=== PATIENT | male | born 1990 | race African-American/Black ===

== ENCOUNTER 2017-03-30 09:54 | Emergency (ER) | payer OTHER ==
[~2017-03-30] VITALS: Ht 175.3 cm; Wt 95.5 kg
[2017-03-30 09:56] VITALS: BP 139/81
[2017-03-30] MEDS ORDERED: IBUP-1022 PO (10:03)
--- NOTE | 2017-03-30 10:54 | REP ---
Clinical: Pain over the tibial tuberosity. Technique: AP, lateral, bilateral oblique and sunrise views. Findings: The osseous structures and joint spaces are intact and normal. There is no evidence for acute fracture or dislocation. No joint effusion is appreciated. Surrounding soft tissues are unremarkable. No subcutaneous emphysema or radiodense foreign body. Anterior proximal tibia appears normal and without evidence for [place] disease. Impression: Normal examination. No acute fracture or dislocation. Signed by Jevon Newell MD 03/30/2017 10:45 A
[2017-03-30] MEDS ORDERED: ACET30TAB PO (11:11)
[2017-03-30] MEDS ORDERED: NAPR500T PO (11:11)
== END 2017-03-30 11:30 | disposition home or self-care (01) ==
LOC: M ED 09:54
DX: S86.811A Strain of other muscle(s) and tendon(s) at lower leg level, right leg, initial encounter (principal); X50.9XXA Other and unspecified overexertion or strenuous movements or postures, initial encounter; Y92.139 Unspecified place military base as the place of occurrence of the external cause; Y93.02 Activity, running; Y99.1 Military activity; D64.9 Anemia, unspecified

== ENCOUNTER 2018-08-10 06:43 | Emergency (ER) | payer OTHER ==
[~2018-08-10] VITALS: Ht 175.3 cm; Wt 96.2 kg
[~2018-08-10 06:43] MED LIST: ACET-716 PO; IBUP-1022 PO; NAPR-837 PO
[2018-08-10] MEDS ORDERED: NS 1,000 ML IV ONE (07:15)
[2018-08-10 07:38] LABS: BASO % 0.5 % (0.0-1.0); EOS # 0.1 10^3/uL (0.0-0.50); EOS % 1.4 % (0.0-3.0); HEMATOCRIT 41.9 % (42.0-52.0); HEMOGLOBIN 14.2 g/dl (13.5-17.5); LYMPH # 0.8 10^3/uL (1.5-6.5); LYMPH % 18.7 % (24.0-44.0); MEAN CORPUSCULAR HEMOGLOBIN 28.5 pg (27.0-33.0); MEAN CORPUSCULAR HGB CONC 33.9 g/dl (32.0-36.5); MEAN CORPUSCULAR VOLUME 84.1 fl (80.0-96.0); MONO # 0.4 10^3/uL (0.0-0.8); MONO % 10.2 % (0.0-5.0); NEUTROPHILS # 2.9 10^3/uL (1.8-7.7); NEUTROPHILS % 68.7 % (36.0-66.0); PLATELET COUNT, AUTOMATED 180 10^3/uL (150-450); RED BLOOD COUNT 4.98 10^6/uL (4.30-6.10); WHITE BLOOD COUNT 4.2 10^3/uL (4.0-10.0)
[2018-08-10] MEDS ORDERED: ISOVUE-370 76% 125ML VIAL (Q9967 PER ML) As Ordered ONE (08:01)
[2018-08-10 08:36] LABS: ALBUMIN 3.8 GM/DL (3.2-5.2); ALT/SGPT 32 U/L (12-78); BILIRUBIN,DIRECT < 0.1 MG/DL (0.0-0.2); BILIRUBIN,TOTAL 0.5 MG/DL (0.2-1.0); BLOOD UREA NITROGEN 8 MG/DL (7-18); CALCIUM LEVEL 8.7 MG/DL (8.5-10.1); CARBON DIOXIDE LEVEL 28 MEQ/L (21-32); CHLORIDE LEVEL 106 MEQ/L (98-107); CREATININE FOR GFR 1.41 MG/DL (0.70-1.30); GLOMERULAR FILTRATION RATE > 60.0 (>60); GLUCOSE, FASTING 92 MG/DL (70-100); LIPASE 235 U/L (73-393); POTASSIUM SERUM 3.8 MEQ/L (3.5-5.1); SODIUM LEVEL 139 MEQ/L (136-145); TOTAL PROTEIN 7.7 GM/DL (6.4-8.2)
--- NOTE | 2018-08-10 09:24 | REP ---
CT ABDOMEN AND PELVIS WITH IV CONTRAST: TECHNIQUE: Axial contrast enhanced images from the lung bases to the pubic symphysis using 100 mL Isovue 370 intravenous contrast material with multiplanar reformations. The visualized lung bases are clear. Liver, spleen, adrenals, pancreas and kidneys are normal in appearance. There is no hydronephrosis. There is no abdominal aortic aneurysm. There is no adenopathy. There is no free air or free fluid. There is no bowel wall thickening. There is no appendicitis. There is no pelvic mass. The urinary bladder is unremarkable. IMPRESSION: No acute abnormality detected. Electronically Signed by Kodak Mcguire MD 08/10/2018 11:12 A
[2018-08-10] MEDS ORDERED: ONDANSETRON 4 MG TAB (S0181) PO ONE (10:00)
[2018-08-10] MEDS ORDERED: DICYCLOMINE 10 MG CAP PO ONE (10:00)
[2018-08-10 10:02] LABS: APPEARANCE, URINE CLEAR (CLEAR); BACTERIA, URINE AUTO NEGATIVE (NEGATIVE); BILIRUBIN, URINE AUTO NEGATIVE (NEGATIVE); BLOOD, URINE BLOOD NEGATIVE (NEGATIVE); COLOR, URINE STRAW (YELLOW); GLUCOSE, URINE (UA) AUTO NEGATIVE (NEGATIVE); KETONE, URINE AUTO NEGATIVE (NEGATIVE); LEUKOCYTE ESTERASE, URINE AUTO 1+ (NEGATIVE); MUCUS, URINE SMALL (NEGATIVE); NITRITE, URINE AUTO NEGATIVE (NEGATIVE); PROTEIN, URINE AUTO NEGATIVE (NEGATIVE); RBC, URINE AUTO 2 /HPF (0-3); SPECIFIC GRAVITY URINE AUTO 1.041 (1.002-1.035); SQUAMOUS EPITHELIAL CELL UR AU 1 /HPF (0-6); UROBILINOGEN, URINE AUTO 0.2 mg/dL (0.0-2.0); WBC, URINE AUTO 5 /HPF (0-3)
[2018-08-10] MEDS ORDERED: CIPR-249 PO (10:10)
[2018-08-10 10:21] VITALS: BP 131/74
[2018-08-10] MEDS ORDERED: CIPROFLOXACIN 500 MG TAB PO ONE (10:30)
== END 2018-08-10 10:25 | disposition home or self-care (01) ==
LOC: M ED 06:43
DX: K52.9 Noninfective gastroenteritis and colitis, unspecified (principal); N39.0 Urinary tract infection, site not specified
CPT/HCPCS: 36415; 74177; 80048; 80076; 81001; 83690; 85025; 96360; 96361; 99284; Q9967